=== PATIENT | male | born 1935 | race Caucasian/White ===

== ENCOUNTER 2020-03-17 16:54 | Inpatient (IN) ==
[2020-03-17] MEDS ORDERED: Isovue-370 500 ML BOTTLE IVP ONE (17:28)
[2020-03-17] MEDS ORDERED: 0.9 % Sodium Chloride 1,000 ML IVC ONE (21:26)
[2020-03-17] MEDS ORDERED: Ondansetron 4 MG/2 ML VIAL IVP PRN (22:38)
[2020-03-17] MEDS ORDERED: Naloxone 0.4 MG/ML INJ IVP PRN (22:38)
[2020-03-17] MEDS ORDERED: Dextrose Gel 15 GM/37.5 ML TUBE PO PRN ×2 (22:42)
[2020-03-17] MEDS ORDERED: *HR* Dextrose 50 % in Water (Vial) 50 ML VIAL IVP PRN (22:42)
[2020-03-17] MEDS ORDERED: D5% in Water 1,000 ML IVC PRN (22:42)
[2020-03-17 23:33] LABS: Basophils % 0.4 %; Eosinophils # 0.1 K/mcL (0.0-0.6); Eosinophils % 1.1 %; Hematocrit 26.8 % (37.5-50.1); Immature Granulocytes % 2.9 % (0-4); Lymphocytes # 2.3 K/mcL (0.6-4.6); Lymphocytes % 21.3 %; Mean Corpuscular HGB Conc 34.7 g/dL (31.6-35.5); Mean Corpuscular Hemoglobin 30.7 pg (28.0-33.3); Mean Corpuscular Volume 88.4 fL (83.0-100.0); Mean Platelet Volume 9.4 fL (9.4-12.4); Monocytes # 0.7 K/mcL (0.0-1.3); Monocytes % 6.2 %; Neutrophils # 7.4 K/mcL (1.6-8.9); Platelet Count 112 K/mcL (140-400); Red Blood Count 3.03 M/mcL (4.19-5.50); Red Cell Distribution Width 13.2 % (11.5-14.5); Segmented Neutrophils % 68.1 %; White Blood Count 10.9 K/mcL (4.3-11.1)
[2020-03-17 23:50] LABS: Hemoglobin 9.3 g/dL (12.9-16.9)
[2020-03-18] MEDS: Insulin LISPRO 300 UNITS/3 ML VIAL SQ SCH ×2 (01:00→08:33)
[2020-03-18] MEDS: Ringers Solution, Lactated 1,000 ML IVC SCH ×2 (01:09→08:32)
[2020-03-18 04:53] LABS: INR 2.3; Prothrombin Time 25.5 Seconds (9.4-12.1)
[2020-03-18 04:58] LABS: Alanine Aminotransferase 32 Units/L (7-52); Albumin 3.3 g/dL (3.5-5.7); Albumin/Globulin Ratio 1.7 (1.1-2.2); Alkaline Phosphatase 351 Units/L (34-104); Aspartate Amino Transferase 13 Units/L (13-39); BUN/Creatinine Ratio 31 (6-26); Bilirubin,Total 1.1 mg/dL (0.3-1.0); Blood Urea Nitrogen 28 mg/dL (8-23); Calcium 8.8 mg/dL (8.6-10.3); Carbon Dioxide 22 mEq/L (23-29); Chloride 103 mEq/L (98-107); Glucose 215 mg/dL (70-105); Magnesium 1.3 mg/dL (1.6-2.6); Osmolality,Calculated 292 (280-300); Potassium 3.5 mEq/L (3.5-5.1); Sodium 135 mEq/L (136-145); Total Protein 5.3 g/dL (6.4-8.9); Troponin I < 0.03 ng/mL (< 0.04); eGFR For African Americans > 60 (> 60); eGFR For Non-African Americans > 60 (> 60)
[2020-03-18 05:14] LABS: Triiodothyronine (T3) Total 0.63 ng/mL (0.87-1.78)
[2020-03-18 05:16] LABS: Bilirubin,Urine Negative (Negative); Blood,Urine Trace (Negative); Clarity,Urine Clear (Clear); Color,Urine Light-Yellow (Yellow); Glucose,Urine (UA) 100 mg/dL (Normal); Ketones,Urine Negative (Negative); Leukocyte Esterase,Urine Small (Negative); Nitrite,Urine Negative (Negative); PH,Urine 5.5 pH Units (5.0-8.0); Protein,Urine Negative (Neg-Trace); Specific Gravity,Urine > 1.030 (1.010-1.025); Squamous Epithelial Cell,Urine Few per hpf (None-Few); Urobilinogen,Urine Normal (Normal)
[2020-03-18] MEDS ORDERED: *HR* HYDROmorphone PF 0.5 MG/0.5 ML SYRINGE IVP PRN (07:42)
[2020-03-18] MEDS ORDERED: Ondansetron 4 MG/2 ML VIAL IVP PRN ×2 (07:42→14:13)
[2020-03-18] MEDS ORDERED: *HR* OxyCODONE Immed Rel 5 MG TABLET PO PRN (07:42)
[2020-03-18] MEDS ORDERED: Promethazine 6.25 MG in Water for inj. (sterile) 20 ML IVPB PRN (07:42)
[2020-03-18] MEDS ORDERED: Piperacillin/Tazobactam 3.375 GM in 0.9 % Sodium Chloride Mini Bag 100 ML IVPB SCH ×2 (08:00→16:00)
[2020-03-18] MEDS ORDERED: allopurinoL 300 MG TABLET PO SCH (09:00)
[2020-03-18] MEDS ORDERED: amLODIPine 5 MG TABLET PO SCH (09:00)
[2020-03-18] MEDS ORDERED: Cyanocobalamin (B-12) 1,000 MCG TABLET PO SCH (09:00)
[2020-03-18] MEDS ORDERED: Lidocaine HCL 4 ML Topical Solution (Laryng-O-Jet Kit Sterile Pak) TP ONE (09:41)
[2020-03-18] MEDS ORDERED: *HR* Propofol 200 MG/20 ML VIAL IVP ONE (09:46)
[2020-03-18] MEDS ORDERED: Dexamethasone 4 MG/ML VIAL ONE (09:46)
[2020-03-18] MEDS ORDERED: Ondansetron 4 MG/2 ML VIAL ONE (09:46)
[2020-03-18] MEDS ORDERED: *HR* Succinylcholine 200 MG/10 ML VIAL IVP ONE (09:46)
[2020-03-18] MEDS ORDERED: *HR* Rocuronium Bromide 50 MG/5 ML VIAL ONE (09:46)
[2020-03-18] MEDS ORDERED: *HR* FentaNYL (PF) 100 MCG/2 ML VIAL ONE (09:46)
[2020-03-18] MEDS ORDERED: Lidocaine -MPF 2% 2 ML VIAL ONE (09:46)
[2020-03-18] MEDS ORDERED: *HR* Phytonadione 10 MG/ML AMPUL SQ ONE (09:49)
[2020-03-18] MEDS ORDERED: Insulin LISPRO 300 UNITS/3 ML VIAL SQ SCH ×2 (10:26→18:00)
[2020-03-18] MEDS ORDERED: Sugammadex Sodium 200 MG/2 ML VIAL IV ONE (11:25)
[2020-03-18] MEDS ORDERED: *HR* HYDROMORPHONE 2 MG/ML VIAL ONE (11:25)
[2020-03-18] MEDS ORDERED: Ketorolac 30 MG/ML VIAL ONE (11:33)
[2020-03-18] MEDS ORDERED: Albumin Human 5% 12.5 GM/250 ML IV.SOLN ONE (11:47)
[2020-03-18] MEDS ORDERED: *HR* Vasopressin 20 UNIT/ML VIAL ONE (11:48)
[2020-03-18] MEDS ORDERED: Isovue-300 50ML VIAL ONE (12:01)
[2020-03-18] MEDS ORDERED: Acetaminophen IV 1,000 MG/100 ML INFUS..BTL ONE (12:02)
[2020-03-18] MEDS ORDERED: Dextrose Gel 15 GM/37.5 ML TUBE PO PRN ×2 (14:13)
[2020-03-18] MEDS ORDERED: *HR* Warfarin 3 MG TABLET PO SCH (14:13)
[2020-03-18] MEDS ORDERED: D5% in Water 1,000 ML IVC PRN (14:13)
[2020-03-18] MEDS ORDERED: Naloxone 0.4 MG/ML INJ IVP PRN (14:13)
[2020-03-18] MEDS ORDERED: *HR* Dextrose 50 % in Water (Vial) 50 ML VIAL IVP PRN (14:13)
[2020-03-18] MEDS ORDERED: Ringers Solution, Lactated 1,000 ML IVC SCH (14:13)
[2020-03-18] MEDS ORDERED: Acetaminophen IV 1,000 MG/100 ML INFUS..BTL IVPB SCH (18:00)
[2020-03-18] MEDS ORDERED: Insulin DETEMIR 100 UNIT/ML X5UNITS SQ SCH ×2 (21:00)
[2020-03-19] MEDS ORDERED: Cyanocobalamin (B-12) 1,000 MCG TABLET PO SCH (09:00)
[2020-03-19] MEDS ORDERED: amLODIPine 5 MG TABLET PO SCH (09:00)
[2020-03-19] MEDS ORDERED: allopurinoL 300 MG TABLET PO SCH (09:00)
[2020-03-19] MEDS: Insulin NPH 100 UNIT/ML (x5UNIT) SQ SCH (09:02)
[2020-03-19] MEDS ORDERED: *HR* OxyCODONE Immed Rel 5 MG TABLET PO PRN (11:24)
[2020-03-19] MEDS ORDERED: Ondansetron 4 MG/2 ML VIAL IVP PRN (11:26)
[2020-03-19] MEDS ORDERED: Naloxone 0.4 MG/ML INJ IVP PRN (11:26)
[2020-03-19] MEDS: allopurinoL 300 MG TABLET PO SCH (13:16)
[2020-03-19] MEDS: Cyanocobalamin (B-12) 1,000 MCG TABLET PO SCH (13:16)
[2020-03-19] MEDS: amLODIPine 5 MG TABLET PO SCH (13:16)
[2020-03-19] MEDS: Acetaminophen IV 1,000 MG/100 ML INFUS..BTL IVPB SCH ×3 (13:17→20:01)
[2020-03-19] MEDS ORDERED: *HR* Warfarin 3 MG TABLET PO SCH (18:00)
[2020-03-19] MEDS ORDERED: Insulin DETEMIR 100 UNIT/ML X5UNITS SQ SCH (21:00)
[2020-03-20] MEDS: Acetaminophen IV 1,000 MG/100 ML INFUS..BTL IVPB SCH (06:04)
[2020-03-20 08:10] VITALS: BP 135/76
[2020-03-20] MEDS: Cyanocobalamin (B-12) 1,000 MCG TABLET PO SCH (08:25)
[2020-03-20] MEDS: Insulin NPH 100 UNIT/ML (x5UNIT) SQ SCH (08:25)
[2020-03-20] MEDS: allopurinoL 300 MG TABLET PO SCH (08:25)
[2020-03-20] MEDS: amLODIPine 5 MG TABLET PO SCH (08:25)
[2020-03-20 09:16] LABS: Basophils % 0.3 %; Eosinophils # 0.1 K/mcL (0.0-0.6); Eosinophils % 0.7 %; Hematocrit 25.9 % (37.5-50.1); Hemoglobin 8.9 g/dL (12.9-16.9); Immature Granulocytes % 1.2 % (0-4); Lymphocytes # 3.6 K/mcL (0.6-4.6); Mean Corpuscular HGB Conc 34.4 g/dL (31.6-35.5); Mean Corpuscular Hemoglobin 30.7 pg (28.0-33.3); Mean Corpuscular Volume 89.3 fL (83.0-100.0); Monocytes # 0.6 K/mcL (0.0-1.3); Monocytes % 3.9 %; Red Cell Distribution Width 13.6 % (11.5-14.5); Segmented Neutrophils % 68.9 %; White Blood Count 14.5 K/mcL (4.3-11.1)
[2020-03-20 09:17] LABS: Platelet Count 93 K/mcL (140-400)
[2020-03-20 09:32] LABS: BUN/Creatinine Ratio 25 (6-26); Blood Urea Nitrogen 21 mg/dL (8-23); Calcium 8.3 mg/dL (8.6-10.3); Carbon Dioxide 20 mEq/L (23-29); Chloride 100 mEq/L (98-107); Glucose 238 mg/dL (70-105); Magnesium 1.5 mg/dL (1.6-2.6); Osmolality,Calculated 285 (280-300); Potassium 4.5 mEq/L (3.5-5.1); Sodium 132 mEq/L (136-145); eGFR For African Americans > 60 (> 60); eGFR For Non-African Americans > 60 (> 60)
[2020-03-22] MEDS ORDERED: *HR* Warfarin 3 MG TABLET PO SCH ×2 (13:59→18:00)
== END 2020-03-20 13:22 | disposition home or self-care (01) | DRG 417 ==
LOC: 3BNU 16:54 → EMEROOARM 16:54 → SUATTDRO 21:39 → 3BNU 21:42 → SUATTDRO 03-18 10:01
PROVIDERS: ADMIT Family Medicine; ATTEND General Practice